=== PATIENT | female | born 1985 | race Caucasian/White ===

== ENCOUNTER 2018-10-08 10:38 | Observation (INO) | END 2018-10-08 17:40 | disposition home or self-care (01) | LOC: 1NENULAB | PROVIDERS: ADMIT Advanced Practice Midwife; ATTEND Advanced Practice Midwife ==

== ENCOUNTER 2018-10-30 08:00 | Inpatient (IN) ==
[2018-10-30] MEDS ORDERED: Ondansetron 4 MG/2 ML VIAL IVP PRN (08:25)
[2018-10-30] MEDS ORDERED: Lidocaine 1% 20 ML MDV INFILT PRN (08:25)
[2018-10-30] MEDS ORDERED: miSOPROStol 25 MCG TABLET PO PRN (08:25)
[2018-10-30] MEDS ORDERED: Famotidine 20 MG/2 ML VIAL IVP PRN (08:25)
[2018-10-30] MEDS ORDERED: *HR* Nalbuphine 10 MG/ML AMPUL IVP PRN (08:25)
[2018-10-30] MEDS ORDERED: Metoclopramide 10 MG/2 ML VIAL IVP PRN (08:25)
[2018-10-30] MEDS ORDERED: Naloxone 0.4 MG/ML INJ IVP PRN (08:25)
[2018-10-30] MEDS ORDERED: Oxytocin 20 units/ LR 1000 mL 20 UNIT/1,000 ML BAG IVC SCH ×2 (08:30→23:51)
[2018-10-30] MEDS ORDERED: Ringers Solution, Lactated 1,000 ML IVC SCH (08:30)
[2018-10-30 09:50] LABS: Basophils % 0.4 %; Eosinophils # 0.1 K/mcL (0.0-0.6); Eosinophils % 0.7 %; Hematocrit 36.2 % (35.3-44.9); Hemoglobin 12.2 g/dL (11.5-15.4); Immature Granulocytes % 0.4 % (0-4); Lymphocytes # 1.8 K/mcL (0.6-4.6); Lymphocytes % 22.5 %; Mean Corpuscular HGB Conc 33.7 g/dL (31.6-35.5); Mean Corpuscular Hemoglobin 28.1 pg (28.0-33.3); Mean Corpuscular Volume 83.4 fL (83.0-100.0); Mean Platelet Volume 10.9 fL (9.4-12.4); Monocytes # 0.5 K/mcL (0.0-1.3); Monocytes % 6.7 %; Neutrophils # 5.6 K/mcL (1.6-8.9); Platelet Count 156 K/mcL (140-400); Red Blood Count 4.34 M/mcL (3.82-4.97); Segmented Neutrophils % 69.3 %
--- NOTE | 2018-10-30 10:01 | OB/GYN History & Physical ---
Date of Encounter: 10/30/18 Time of Encounter: 09:36 Assessment and Plan (1) 39 weeks gestation of Current visit: Yes Status: Acute admitted for IOL Cytotec and painter catheter per Dr. Sutherland's request (2) Gestational diabetes Current visit: No Status: Acute Glucose on admission accuchecks Q4 Qualifiers: Gestational diabetes mellitus control: insulin-controlled Trimester: third trimester Qualified Code(s): O24.414 - Gestational diabetes mellitus in , insulin controlled History of Present Illness Chief complaint: Schedule IOL HPI: Ms. Abarca is a 33 year old female @ 39w3d presents to labor and delivery for scheduled IOL for Dr. Sutherland. Patient reports good movement. Denies contractions, LOF or VB. She reports she is a GDM on Metformin 500mg po BID and NPH 20 units at HS. Blood type: A Positive Rubella: Immune Hep. B: Nonreactive GBS: negative Past Med Surg Social Fam HX - Past Medical History Source: patient Medical history: non-contributory Psychiatric history: no psych history - Past Surgical History Surgical History: no surgical history - Social History Smoking Status: Never smoker Smokeless Tobacco Status: No Alcohol use: none Drug use: none Occupational status: employed Current living situation: Home - Independent Activity Level: Independent ambulation Recent Out of Country Travel Within the Last 8 Weeks: No Exposure or Possible Exposure to Illness During Travel: No - Family History Mother Living Status: Still Living Hx Family Cardiac Disorders: No Hx Family Respiratory Disorders: No Hx Family Cancer: No Hx Family GI Disorders: No Hx Family Endocrine Disorder: No Hx Family Neuromuscular Disorders: No Hx Family Neurologic Disorders: No Hx Family HEENT Disorders: No Hx Family Autoimmune Disorders: No Obstetrical History - Pregnancies : 5 Para: 2 Term: 2 : 0 Ab's: 2 Livin Medications and Allergies Insulin NPH 18 units SQ DAILY 10/08/18 [History] Omeprazole Magnesium 1 / PO DAILY 10/08/18 [History] Vitamin Tablet 1 / PO DAILY 10/08/18 [History] metFORMIN 500 mg PO BID 10/08/18 [History] Allergy/AdvReac Type Severity Reaction Status Date / Time No Known Allergies Allergy Verified 10/08/18 11:14 Review of System OB - Constitutional Constitutional ROS IM: no chills, no fever(s), no headache(s) - Cardiovascular Cardiovascular: no chest pain, no lightheadedness, no palpitations, no pedal edema - Respiratory Respiratory: no cough, no dyspnea - Gastrointestinal Gastrointestinal: no constipation, no cramping, no heartburn, no nausea, no vomiting - Genitourinary Genitourinary: no dyspareunia, no genital pruritis, no urinary frequency, no urinary incontinence, no urinary urgency, no vaginal discharge, no vaginal odor, no vaginal pruritis Exam - Constitutional Constitutional: well developed, well nourished, no acute distress, obese - HEENT HEENT: Normocephaly, Mucus Membranes Moist - Neck Neck exam: full ROM, supple - Lungs Respiratory exam: CTAB - Cardiovascular Cardiovascular exam: RRR, +S1 - Abdomen Abdomen: Present: bowel sounds normal, gravid, non tender - Extremities Extremities exam: full ROM, normal capillary refill, normal inspection Deep Tendon Reflex Grade: 2+ Normal - Cervix Dilation: 1 Effacement: 70 Station: -2 - Uterus Uterus exam: Present: normal size, normal contour - Comments Comments: FHR 150 bpm moderate variability +15x15 accels no decels noted. Contractions 1-5 min apart. Cat. 1 tracing Painter catheter placed for IOL with 60cc sterile water in painter balloon. Patient tolerated procedure well. Results Result Diagrams: 10/30/18 09:30 All other labs normal. - VTE Reasons for not Prescribing Prophylaxis: Treatment not Indicated - Low risk for VTE
--- NOTE | 2018-10-30 14:16 | Anesthesia Evaluation PreOp ---
Date of Encounter: 10/30/18 Time of Encounter: 14:14 - Past History Planned Operation: ANU Cardiac History: Denies any Significant Hx Pulmonary History: Denies Any Significant HX [employer] History: Denies Any Significant HX Other Medical History: Other (gestational DM) Anesthesia History: No Prior Anesthetic Complications (never had GA; denies family h/o GA complications), Past Anesthesia (ANU x 3--1st epidural provided one-sided analgesia) : Yes Alcohol Use: none Drug use: none Medications and Allergies Insulin NPH 18 units SQ DAILY 10/08/18 [History] Omeprazole Magnesium 1 / PO DAILY 10/08/18 [History] Vitamin Tablet 1 / PO DAILY 10/08/18 [History] metFORMIN 500 mg PO BID 10/08/18 [History] Allergy/AdvReac Type Severity Reaction Status Date / Time No Known Allergies Allergy Verified 10/08/18 11:14 - Meds/Allergy Pre-op Review Medications Reviewed: Yes Allergies Reviewed: Yes Beta Blockers on Current Med List: No Anesthesia Results - Labs 10/30/18 09:30 10/30/18 10:20 Anesthesia Exam 135/67, HR 75 O2 Sat Height 1.65 m Weight 111.13 kg NPO (# of Hours): solids > 8hrs Pain Scale: 0 Pain Scale Used: Numeric (1 - 10) - HEENT Pupil (Motor): Pupils equal Mallampati: II Oral Opening: Greater than 3 - [employer] LOC: Oriented [employer] Motor: Normal RUE, Normal LUE, Normal RLE, Normal LLE, Normal Face [employer] Sensory: Normal: RUE, LUE, RLE, LLE, Face - Cardiac Rhythm: Regular Murmur: None - Pulmonary Breath Sounds: bilateral Clear Respiratory Effort: Symmetrical Anesthesia Assess/Plan ASA Score: 3 Level of consciousness: Cooperative, Oriented, Tranquil Anesthetic Plan: Epidural Reason for No Neuroaxial/Regional Block: Other Autologous Blood: No Monitoring Plan: Standard Monitors Recovery Plan: Other
[2018-10-30] MEDS ORDERED: Bupivacaine-MPF 0.25% 10 ML VIAL ONE (14:24)
[2018-10-30] MEDS ORDERED: *HR* FentaNYL (PF) 100 MCG/2 ML VIAL ONE (14:24)
--- NOTE | 2018-10-30 14:51 | OB Labor Progress Note ---
Date of Encounter: 10/30/18 Time of Encounter: 14:48 Labor Progress Note - Subjective Subjective: Patient doing well. She denies any pain at this time. - Cervix Cervix: 6/90/-1 - Heart Tones Heart Tones: 135 bpm moderate variability +15x15 accels early decel noted. - Lockney Lockney: 2-3 min apart - Interventions Interventions: SVE, AROM moderate amount of meconium stained fluid noted. - Plan Physician notified: Yes Physician notified details: updated on patient status Plan: continue labor management patient may have nubain or epidural when desired
[2018-10-30] MEDS ORDERED: Epidural Premix (fent/bupiv) 110 ML EP ONE ×2 (15:21→20:21)
--- NOTE | 2018-10-30 15:47 | Anesthesia Procedures ---
Date of Encounter: 10/30/18 Time of Encounter: 15:45 Procedures: Anesthesia - Epidural/Spinal Patient ID/Chart reviewed: Yes Patient examined: Yes OB Eval: Gestational age: 39 weeks 3 days OB Eval: : 5 OB Eval: Hx Para: 2 OB Eval: Contractions: Non-stressed pattern Consent Obtained: Yes Supplemental Oxygen: None/Room Air Site Prep: Aseptic Technique, Sterile prep and drape, 0.5% Chlorhexidine/Alcohol Patient position: upright Local Anesthetic: Lidocaine 1% Amount of Local Anesthetic used: 3 Touhy Needle Gauge: 18 Touhy Needle Depth (cm): 7 Catheter Depth at Skin (cm): 12 Test Dose (1.5% Lido + Epi): Volume given (mls): 5 Test Dose Result: Negative Loading Dose: 0.25% Marcaine (mls): 5 Loading Dose: Fentanyl (mcg): 100 Loading Dose Administered: Thru Touhy Needle Infusion Med: 0.125% Bupivacaine w/ 2 mcg/ml Fentanyl Catheter Secured in Place: Tegaderm, Tape Interspace Used: L4-L5 Loss of Resistance (CHARITY): Yes Blood: No CSF: No Paresthesia: No Procedure: successful on 1st attempt; patient tolerated procedure well; VSS Vitals + FHT's: see Elza DENG's electronic records for VS entry
[2018-10-30 16:24] LABS: Amphetamine Screen,Urine Negative ng/mL (Cutoff=1000); Barbiturate Screen,Urine Negative ng/mL (Cutoff=200); Benzodiazepines Screen,Urine Negative ng/mL (Cutoff=200); Cannabinoid Screen,Urine Negative ng/mL (Cutoff = 50); Cocaine Screen,Urine Negative ng/mL (Cutoff= 300); Opiate Screen,Urine Negative ng/mL (Cutoff=300); Phencyclidine Screen,Urine Negative ng/mL (Cutoff=25)
--- NOTE | 2018-10-30 18:14 | OB Labor Progress Note ---
Date of Encounter: 10/30/18 Time of Encounter: 18:11 Labor Progress Note - Subjective Subjective: Called to patient's room due to prolonged decel and Dr. Sutherland not on site. Patient denies any pain, SOB or feeling lightheaded. - Cervix Cervix: 6.5/90/-1 - Heart Tones Heart Tones: 135 bpm moderate variability decel noted 90's for 5-5.5 min with return to baseline - [place]: irregular - Interventions Interventions: SVE, repositioned, scalp stim. Dr. Sutherland called by Nursing staff - Plan Physician notified: Yes Physician notified details: FHT tracing Plan: Dr. Sutherland on his way to hospital
--- NOTE | 2018-10-30 19:57 | OB Labor Progress Note ---
Date of Encounter: 10/30/18 Time of Encounter: 19:55 Labor Progress Note - Subjective Subjective: Called in to check patient. - Cervix Cervix: Patient complete and -1 station. Patient trying to push but was unable to do so. Could not bring up and down. heart rate dropped into the 70s. There was a nice rebound once patient was placed in left side. - Heart Tones Heart Tones: 1:30 to 140s with early decelerations noted - Interventions Interventions: Patient returned left side with peanut in place - Plan Plan: Patient will be allowed to labor down. We will continue monitoring.
--- NOTE | 2018-10-30 21:20 | OB/GYN Procedure Note ---
Delivery - Delivery Date: 10/30/18 Provider: Apolinar Sutherland Intrapartum events: none Delivery induction: painter, misoprostol Delivery augmentation: rupture of membranes Delivery monitor: external FHT, external uterine, internal FHT Anesthesia: epidural Quantitated Blood Loss: 300 - (s) A Infant Delivery Date: 10/30/18 Delivery Time: 21:02 Presentation: vertex Position: OA Route of delivery: Gender: Female Viability: Viable Pounds: 8 Ounces: 3 Weight Gram: 3.72 kg at 1 minute: 8 at 5 mins: 9 Shoulder Dystocia: not encountered Specimens collected: cord blood Placenta: spontaneous Cord: 3 umbilical vessels - Repair Episiotomy: none Laceration Description: None - Complications Delivery complications: none Delivery comments: This patient progressed to complete and pushing. She had a spontaneous vaginal delivery of a female over an intact perineum. Infant's head was in the perineum easily. The rest the was then delivered with 1 push. Infant cried immediately upon delivery. . The infant was passed to nursing in attendance. After a minute the cord was clamped and cut. Cord bloods obtained. The placenta was then delivered spontaneously and intact. There are no cervical, vaginal, periurethral, or perineal lacerations noted. Patient delivered a female . Weight was 8 lbs. 3 oz., 3720 g. Apgars are 8 at 1 minute and 9 at 5 minutes. Estimated blood loss 300 mL. - Disposition Mom disposition: stable in LDR [place] disposition: stable in LDR
[2018-10-30] MEDS ORDERED: Ibuprofen 600 MG TABLET PO PRN (23:51)
[2018-10-30] MEDS ORDERED: Acetaminophen 325 MG TABLET PO PRN (23:51)
[2018-10-30] MEDS ORDERED: Measles/Mumps/Rubella Vacc 0.5 ML VIAL SQ PRN (23:51)
[2018-10-31 06:24] LABS: Basophils % 0.2 %; Eosinophils % 0.2 %; Hematocrit 34.9 % (35.3-44.9); Hemoglobin 11.5 g/dL (11.5-15.4); Immature Granulocytes % 0.5 % (0-4); Lymphocytes # 1.8 K/mcL (0.6-4.6); Lymphocytes % 13.6 %; Mean Corpuscular Hemoglobin 27.8 pg (28.0-33.3); Mean Corpuscular Volume 84.5 fL (83.0-100.0); Mean Platelet Volume 11.5 fL (9.4-12.4); Monocytes # 0.8 K/mcL (0.0-1.3); Monocytes % 6.3 %; Neutrophils # 10.4 K/mcL (1.6-8.9); Platelet Count 147 K/mcL (140-400); Red Blood Count 4.13 M/mcL (3.82-4.97); Red Cell Distribution Width 14.2 % (11.5-14.5); Segmented Neutrophils % 79.2 %
[2018-10-31 06:28] LABS: White Blood Count 13.1 K/mcL (4.3-11.1)
[2018-10-31] MEDS ORDERED: Prenatal Vit/FA 1 EACH TABLET PO SCH (09:00)
--- NOTE | 2018-10-31 10:45 | Discharge Summary ---
Date of Encounter: 10/31/18 Time of Encounter: 10:43 - Discharge Diagnosis (1) Status post vaginal delivery Priority: Primary Status: Acute Comments: Patient meeting day one milestones. Pain well-controlled with prescribed medications. Voiding without difficulty, tolerating regular diet, bleeding light. No bowel movement yet. Anticipate discharge late this evening (2) Gestational diabetes Priority: Secondary Status: Acute Comments: Follow-up for 12 weeks for 2 hour glucose tolerance test. Patient is aware of need for testing. Qualifiers: Gestational diabetes mellitus control: insulin-controlled Trimester: third trimester Qualified Code(s): O24.414 - Gestational diabetes mellitus in , insulin controlled - Discharge Medications Prescriptions: New Acetaminophen [Tylenol] 650 mg PO Q6HR PRN tablet PRN Reason: Mild Pain Ibuprofen [Motrin] 600 mg PO Q6HR PRN #60 tablet PRN Reason: Cramping Docusate [Colace] 100 mg PO BID capsule Measles/Mumps/Rubella Vacc [MMR II Vaccine with Diluent] 0.5 ml SQ AD PRN vial PRN Reason: Rubella nonimmune Continued Omeprazole Magnesium 1 / PO DAILY Discontinued Vitamin Tablet 1 / PO DAILY Insulin NPH 18 units SQ DAILY metFORMIN 500 mg PO BID Home Medications: Omeprazole Magnesium 1 / PO DAILY 10/08/18 [History] Acetaminophen [Tylenol] 650 mg PO Q6HR PRN tablet 10/31/18 [Rx] Docusate [Colace] 100 mg PO BID capsule 10/31/18 [Rx] Ibuprofen [Motrin] 600 mg PO Q6HR PRN #60 tablet 10/31/18 [Rx] Measles/Mumps/Rubella Vacc [MMR II Vaccine with Diluent] 0.5 ml SQ AD PRN vial 10/31/18 [Rx] Allergies/Adverse Reactions: Allergy/AdvReac Type Severity Reaction Status Date / Time No Known Allergies Allergy Verified 10/08/18 11:14 Data Procedures and tests throughout hospitalization: Laboratory Tests 10/30/18 10/30/18 10/30/18 09:30 09:50 10:20 WBC 8.0 RBC 4.34 Hgb 12.2 Hct 36.2 MCV 83.4 MCH 28.1 MCHC 33.7 RDW 14.0 Plt Count 156 MPV 10.9 Immature Gran % 0.4 Seg Neutrophils % 69.3 Lymphocytes % 22.5 Monocytes % 6.7 Eosinophils % 0.7 Basophils % 0.4 Neutrophils # 5.6 Lymphocytes # 1.8 Monocytes # 0.5 Eosinophils # 0.1 Basophils # 0.0 Glucose 86 POC Glucose Urine Opiates Screen Negative Ur Buprenorphine Scrn Negative Ur Barbiturates Screen Negative Ur Phencyclidine Scrn Negative Ur Amphetamines Screen Negative U Benzodiazepines Scrn Negative Urine Cocaine Screen Negative U Marijuana (THC) Screen Negative Ur Drug Screen Interp See Below 10/30/18 10/31/18 10/31/18 17:48 00:14 05:41 WBC 13.1 H D RBC 4.13 Hgb 11.5 Hct 34.9 L MCV 84.5 MCH 27.8 L MCHC 33.0 RDW 14.2 Plt Count 147 MPV 11.5 Immature Gran % 0.5 Seg Neutrophils % 79.2 Lymphocytes % 13.6 Monocytes % 6.3 Eosinophils % 0.2 Basophils % 0.2 Neutrophils # 10.4 H Lymphocytes # 1.8 Monocytes # 0.8 Eosinophils # 0.0 Basophils # 0.0 Glucose POC Glucose 76 120 H Urine Opiates Screen Ur Buprenorphine Scrn Ur Barbiturates Screen Ur Phencyclidine Scrn Ur Amphetamines Screen U Benzodiazepines Scrn Urine Cocaine Screen U Marijuana (THC) Screen Ur Drug Screen Interp 10/31/18 07:42 WBC RBC Hgb Hct MCV MCH MCHC RDW Plt Count MPV Immature Gran % Seg Neutrophils % Lymphocytes % Monocytes % Eosinophils % Basophils % Neutrophils # Lymphocytes # Monocytes # Eosinophils # Basophils # Glucose POC Glucose 92 Urine Opiates Screen Ur Buprenorphine Scrn Ur Barbiturates Screen Ur Phencyclidine Scrn Ur Amphetamines Screen U Benzodiazepines Scrn Urine Cocaine Screen U Marijuana (THC) Screen Ur Drug Screen Interp Labs on day of discharge: Labs from last 24 hours 10/31/18 10/31/18 10/31/18 07:42 05:41 00:14 WBC 13.1 H D RBC 4.13 Hgb 11.5 Hct 34.9 L MCV 84.5 MCH 27.8 L MCHC 33.0 RDW 14.2 Plt Count 147 MPV 11.5 Immature Gran % 0.5 Seg Neutrophils % 79.2 Lymphocytes % 13.6 Monocytes % 6.3 Eosinophils % 0.2 Basophils % 0.2 Neutrophils # 10.4 H Lymphocytes # 1.8 Monocytes # 0.8 Eosinophils # 0.0 Basophils # 0.0 Glucose POC Glucose 92 120 H Urine Opiates Screen Ur Buprenorphine Scrn Ur Barbiturates Screen Ur Phencyclidine Scrn Ur Amphetamines Screen U Benzodiazepines Scrn Urine Cocaine Screen U Marijuana (THC) Screen Ur Drug Screen Interp 10/30/18 10/30/18 10/30/18 17:48 10:20 09:50 WBC RBC Hgb Hct MCV MCH MCHC RDW Plt Count MPV Immature Gran % Seg Neutrophils % Lymphocytes % Monocytes % Eosinophils % Basophils % Neutrophils # Lymphocytes # Monocytes # Eosinophils # Basophils # Glucose 86 POC Glucose 76 Urine Opiates Screen Negative Ur Buprenorphine Scrn Negative Ur Barbiturates Screen Negative Ur Phencyclidine Scrn Negative Ur Amphetamines Screen Negative U Benzodiazepines Scrn Negative Urine Cocaine Screen Negative U Marijuana (THC) Screen Negative Ur Drug Screen Interp See Below Date of admission: 10/30/18 08:03 Primary care physician: Narciso Pichardo DO Consults: 10/30/18 23:51 Consult to Physical Science Technician [CONS] Routine Comment: Vaginal delivery, consult needed Discharging clinician: Heather Contreras Anticipated date of discharge: 10/31/18 - Patient Status Disposition: Home, Self-Care Condition: Good Functional capacity at discharge: independent ambulation Overall status at discharge: patient is progressing back to baseline - Discharge Instructions Follow Up With: Joss Pichardo DO [Primary Care Provider] - Dot Sutherland MD [Partnered Physician] - - Diet and Activity Activity: resume usual activities as tolerated Diet: regular diet Hospital Course Reason for admission: induction of labor Delivery: Episiotomy: none Laceration: none Other procedures: none complications: none Discharge diagnosis: IUP at term delivered [place] baby: female Hospital course: Delivery Date: 10/30/18 Provider: Apolinar Sutherland Intrapartum events: none Delivery induction: painter, misoprostol Delivery augmentation: rupture of membranes Delivery monitor: external FHT, external uterine, internal FHT Anesthesia: epidural Quantitated Blood Loss: 300 - Infant (s) Infant A Infant Delivery Date: 10/30/18 Delivery Time: 21:02 Presentation: vertex Position: OA Route of delivery: Gender: Female Viability: Viable Pounds: 8 Ounces: 3 Weight Gram: 3.72 kg at 1 minute: 8 at 5 mins: 9 Shoulder Dystocia: not encountered Specimens collected: cord blood Placenta: spontaneous Cord: 3 umbilical vessels - Repair Episiotomy: none Laceration Description: None - Complications Delivery complications: none Delivery comments: This patient progressed to complete and pushing. She had a spontaneous vaginal delivery of a female infant over an intact perineum. 's head was in the perineum easily. The rest the was then delivered with 1 push. Infant cried immediately upon delivery. . The infant was passed to nursing in attendance. After a minute the cord was clamped and cut. Cord bloods obtained. The placenta was then delivered spontaneously and intact. There are no cervical, vaginal, periurethral, or perineal lacerations noted. Patient delivered a female infant. Weight was 8 lbs. 3 oz., 3720 g. Apgars are 8 at 1 minute and 9 at 5 minutes. Estimated blood loss 300 mL. - Disposition Mom disposition: stable in LDR [place] disposition: stable in LDR Time Attestation: Total time spent providing and/or coordinating discharge services: Time Spent: Less than 30 minutes Exam - Constitutional Vitals: Temp Pulse Resp BP Pulse Ox 97.6 F 76 18 125/81 98 10/31/18 07:40 10/31/18 07:40 10/31/18 10:00 10/31/18 07:40 10/31/18 07:40 General appearance IM: A&O X 3, pleasant, no acute distress, answers questions appropriately - Respiratory Respiratory exam: Present: CTAB. Absent: respiratory distress - Cardiovascular Cardiovascular exam IM: Present: RRR, +S1, +S2. Absent: irregular rhythm - GI/Abdominal GI/Abdominal exam IM: normal bowel sounds, soft - Rectal Rectal exam: deferred - External exam: normal external exam Uterine Tone: Firm Uterus Position: At Umbilicus, Midline - Extremities Exam Extremities exam IM: Present: full ROM, normal capillary refill, normal inspection. Absent: calf tenderness - Neurological Exam Neurological exam: alert, normal gait, oriented X3
[2018-10-31 20:22] VITALS: BP 110/58
== END 2018-10-31 23:21 | disposition home or self-care (01) | DRG 807 ==
LOC: 1NENULAB 08:03 → 1NENUOBS 10-31 00:11
PROVIDERS: ADMIT Obstetrics & Gynecology; ATTEND Obstetrics & Gynecology